=== PATIENT | female | born 1970 | race Caucasian/White ===

== ENCOUNTER 2022-10-24 09:12 | Outpatient (CLI) | payer OTHER, SELFPAY ==
[2022-10-24 18:30] LABS: Alanine Aminotransferase 115 U/L (6-35); Albumin Level 4.2 g/dL (3.5-5.1); Alkaline Phosphatase 49 U/L (38-126); Anion Gap 5 mmol/L (8-16); Aspartate Amino Transferase 81 U/L (14-36); Blood Urea Nitrogen 18 mg/dL (7-17); Calcium 8.8 mg/dL (8.4-10.2); Carbon Dioxide 30 mmol/L (22-30); Chloride 103 mmol/L (98-107); Cholesterol 199 mg/dL (0-200); Estimated Glomerular Filt Rate > 60; Glucose 106 mg/dL (65-110); HDL Direct 50 mg/dL; Potassium 4.1 mmol/L (3.4-5.0); Sodium 138 mmol/L (137-145); Triglycerides 89 mg/dL (<150)
[2022-10-24 18:42] LABS: LDL Cholesterol Direct 112 mg/dL
[2022-10-24 19:42] LABS: Hemoglobin A1C 5.9 % (<5.7)
[2022-10-24 19:45] LABS: Basophils Absolute Auto 0.1 K/mm3 (0.0-0.1); Basophils Percent Auto 1.1 % (0.2-1.2); Eosinophils Absolute Auto 0.2 K/mm3 (0-0.3); Eosinophils Percent Auto 2.3 % (0-4.4); Hematocrit 42.7 % (37.0-47.0); Hemoglobin 14.1 g/dL (12.0-15.0); Immature Granulocyte Absolute 0.01 K/mm3 (0.00-0.031); Immature Granulocyte Percent A 0.1 % (0-0.5); Lymphocytes Absolute Auto 2.27 K/mm3 (0.9-3.2); Lymphocytes Percent Auto 30.8 % (18.3-44.2); Mean Corpuscular Hemoglobin 30.9 pg (26-34); Mean Corpuscular Volume 93.6 fl (80-100); Mean Platelet Volume 9.8 fl (7.4-10.4); Monocytes Absolute Auto 0.6 K/mm3 (0.1-0.6); Monocytes Percent Auto 8.4 % (2.6-8.5); Neutrophils Absolute Auto 4.2 K/mm3 (1.3-6.7); Neutrophils Percent Auto 57.3 % (45.5-73.1); Platelet Count Result 350 k/mm3 (150-375); Red Blood Count 4.56 M/mm3 (4.2-5.4); Red Cell Distribution Width 12.1 % (11.5-14.5); White Blood Count 7.4 K/mm3 (4.5-10.0)
== END 2022-10-24 09:13 | disposition home or self-care (01) ==
LOC: ANHGOSHLAB 09:16
PROVIDERS: PCP Family Medicine; Visit Provider Nurse Practitioner
DX: E78.5 Hyperlipidemia, unspecified (principal); R73.03 Prediabetes
CPT/HCPCS: 36415; 80053; 80061; 83036; 85025

== ENCOUNTER 2022-11-02 08:47 | Outpatient (CLI) | payer OTHER, SELFPAY ==
[2022-11-02 20:43] LABS: Hepatitis B Surface Antigen Negative (Negative)
[2022-11-02 20:49] LABS: HAV RESULT Negative (Negative); Hepatitis B Core IgM Result Negative (Negative)
[2022-11-02 21:01] LABS: Hepatitis C Virus Antibody Negative (Negative)
== END 2022-11-02 08:48 | disposition home or self-care (01) ==
LOC: ANHGOSHLAB 08:49
PROVIDERS: PCP Family Medicine; Visit Provider Nurse Practitioner
DX: R74.8 Abnormal levels of other serum enzymes (principal)
CPT/HCPCS: 36415; 80074

== ENCOUNTER 2023-04-18 08:32 | Outpatient (CLI) | payer BC, SELFPAY ==
[2023-04-18 19:38] LABS: Basophils Absolute Auto 0.1 K/mm3 (0.0-0.1); Basophils Percent Auto 1.3 % (0.2-1.2); Eosinophils Absolute Auto 0.2 K/mm3 (0-0.3); Eosinophils Percent Auto 2.5 % (0-4.4); Hematocrit 42.8 % (37.0-47.0); Hemoglobin 13.9 g/dL (12.0-15.0); Immature Granulocyte Absolute 0.03 K/mm3 (0.00-0.031); Immature Granulocyte Percent A 0.3 % (0-0.5); Lymphocytes Absolute Auto 2.61 K/mm3 (0.9-3.2); Lymphocytes Percent Auto 30.2 % (18.3-44.2); Mean Corpuscular HGB Conc 32.5 g/dl (32-36); Mean Corpuscular Hemoglobin 30.3 pg (26-34); Mean Corpuscular Volume 93.2 fl (80-100); Mean Platelet Volume 9.5 fl (7.4-10.4); Monocytes Absolute Auto 0.6 K/mm3 (0.1-0.6); Monocytes Percent Auto 7.2 % (2.6-8.5); Neutrophils Absolute Auto 5.1 K/mm3 (1.3-6.7); Neutrophils Percent Auto 58.5 % (45.5-73.1); Platelet Count Result 353 k/mm3 (150-375); Red Blood Count 4.59 M/mm3 (4.2-5.4); Red Cell Distribution Width 12.6 % (11.5-14.5); White Blood Count 8.6 K/mm3 (4.5-10.0)
[2023-04-18 19:39] LABS: Alanine Aminotransferase 95 U/L (6-35); Alkaline Phosphatase 63 U/L (38-126); Anion Gap 3 mmol/L (8-16); Aspartate Amino Transferase 59 U/L (14-36); Bilirubin,Total 0.9 mg/dL (0.2-1.3); Blood Urea Nitrogen 13 mg/dL (7-17); Calcium 8.6 mg/dL (8.4-10.2); Carbon Dioxide 29 mmol/L (22-30); Chloride 103 mmol/L (98-107); Cholesterol 180 mg/dL (0-200); Estimated Glomerular Filt Rate > 60; Glucose 122 mg/dL (65-110); HDL Direct 51 mg/dL; Sodium 135 mmol/L (137-145); Triglycerides 86 mg/dL (<150)
[2023-04-18 19:48] LABS: LDL Cholesterol Direct 106 mg/dL
[2023-04-18 20:14] LABS: Hemoglobin A1C 5.8 % (<5.7)
[2023-04-18 20:21] LABS: Vitamin D 25 Hydroxy 69.1 ng/mL
== END 2023-04-18 08:33 | disposition home or self-care (01) ==
LOC: ANHGOSHLAB 08:33
PROVIDERS: PCP Family Medicine; Visit Provider Nurse Practitioner Family
DX: E78.5 Hyperlipidemia, unspecified (principal); R73.03 Prediabetes; E55.9 Vitamin D deficiency, unspecified
CPT/HCPCS: 36415; 80053; 80061; 82306; 83036; 85025

== ENCOUNTER 2023-08-28 11:15 | Outpatient (RCR) | payer BC, SELFPAY ==
--- NOTE | 2023-07-16 12:46 | OPREHPOC ---
Outpatient Therapy Plan of Care This is a Multidisciplinary Plan of Care that may contain components documented by all disciplines (PT, OT, and ST.) PT Problem 1 PT Problem #1 Knowledge Deficit PT Goal 1 Goal Pt to be IND with issued HEP Target Visit 8 PT Problem 2 PT Problem #2 Pain PT Goal 1 Goal Pt to reports low back/L leg pain no greater than 3/10 in the last week Target Visit 8 PT Goal 2 Goal Pt to report 75% improvement in overall symptoms Target Visit 8 PT Problem 3 PT Problem #3 Impaired Functional Mobil PT Goal 1 Goal Pt to be able to walk for 1 mile before needing to sit down Target Visit 8 PT Goal 2 Goal Pt to be able to stand for 2 hours prior to needing to sit Target Visit 8
--- NOTE | 2023-07-16 12:47 | PTOPEVAL1 ---
Assessment and note entered by Travis Tovar, PT, DPT Evaluation Information Assessment Status Evaluation Diagnosis low back pain Onset 1 month Subjective Information Pt reports she has fibromyalgia but states the pain she has been getting is more sciatic related pain. She gets a radiating shock pain down her leg when rolling over in bed, walking for long periods of time, and standing for a while. She also reports anterior thigh tightness and an achy pain in her lower back. 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 She states she can stand no longer than 10-15 mins at a time and walk no more than 1/2 a mile. Reported Pain Level Pain Score 4: Self Report Assessment PT Clinical Summary Nereyda presents to therapy today for her initial evaluation with a diagnosis of low back pain. Today she demonstrates a positive neural tension test, increased tenderness to palpation on her L piriformis and decreased piriformis ROM. She also demonstrates mild hip and core weakness contributing to postural deficits. Skilled therapy services are indicated to address the deficits noted above, to manage pain, and to return to [facility] . Plan of Care Interventions Electrical Stimulation,Gait Training,Hot Pack/Cold Pack,Manual Therapy,Neuro Re-education,Patient/ Caregiver Educati,Therapeutic Activities, Therapeutic Exercise PT Services Indicated Yes Treatment Frequency and 2x/wk for 8 visits Duration These treatments will address the objective and functional deficits as defined above. The patient will be advanced safely and appropriately in order for the patient to progress towards his/her prior level of function. Additional exercises will be introduced and as well as a comprehensive home exercise program upon discharge, if needed, ?to ensure carryover of functional gains achieved in the clinic. This treatment plan has been reviewed and agreement upon by the patient.
--- NOTE | 2023-08-07 13:19 | PTOPPROG ---
Assessment and note entered by Travis Tovar, PT, DPT Evaluation Information Assessment Status Progress Diagnosis low back pain Onset 1 month Subjective Information Pt states overall she has improved her body awareness during her daily tasks. She states she is still getting a burning sciatic pain but this is decreasing in frequency and intensity. She states she did some entertaining over the weeks and was really hurting from the extra cooking and cleaning. She states her muscle relaxer was increased and this has helped with her pain too. She states her standing tolerance has increased to at least 30 mins. Assessment PT Clinical Summary Nereyda presents to therapy today for her progress report following 6 visits of skilled therapy to treat her diagnosis of low back pain. Today she continues to have a positive neural tension test and increased tenderness to palpation on her L piriformis. She continues to have poor glute med contraction with resistance. Continuation of services are indicated to address the deficits noted above, to manage pain, and to return to [facility] . Plan of Care Interventions Electrical Stimulation,Gait Training,Hot Pack/Cold Pack,Manual Therapy,Neuro Re-education,Patient/ Caregiver Educati,Therapeutic Activities, Therapeutic Exercise PT Services Indicated Yes Treatment Frequency and 1x/wk for 4 visits Duration These treatments will address the objective and functional deficits as defined above. The patient will be advanced safely and appropriately in order for the patient to progress towards his/her prior level of function. Additional exercises will be introduced and as well as a comprehensive home exercise program upon discharge, if needed, ?to ensure carryover of functional gains achieved in the clinic. This treatment plan has been reviewed and agreement upon by the patient.
--- NOTE | 2023-09-04 12:55 | PCPTNOTE ---
Patient called & cancelled scheduled appointment this date due to being sick. She had to leave a voicemail. Called and LVM with follow up instructions to reschedule as this is her last appointment.
--- NOTE | 2023-09-26 08:20 | PTOPDC ---
Assessment and note entered by Travis Tovar, PT, DPT Evaluation Information Assessment Status Discharge - Pt Not Present Diagnosis low back pain Onset 1 month Subjective Information Pt did not show up to last scheduled appointment on 09/04/23. She was called at that time and told to reschedule if needed. We have not heard from her since. Assessment PT Clinical Summary Nereyda completed 9 visits of skilled therapy from to 09/04/23. She will be discharged at this time d/t inactivity.
== END 2023-09-26 09:31 | disposition home or self-care (01) ==
LOC: ANHGOSHPT 11:15
PROVIDERS: PCP Family Medicine; Visit Provider Nurse Practitioner Family
DX: M54.50 Low back pain, unspecified (principal)
CPT/HCPCS: 97110; 97140; 97161; 97530

== ENCOUNTER 2023-11-20 08:19 | Outpatient (CLI) | payer BC, SELFPAY ==
[2023-11-20 14:02] LABS: Basophils Absolute Auto 0.1 K/mm3 (0.0-0.1); Basophils Percent Auto 1.1 % (0.2-1.2); Eosinophils Absolute Auto 0.2 K/mm3 (0-0.3); Eosinophils Percent Auto 2.9 % (0-4.4); Hematocrit 43.7 % (37.0-47.0); Immature Granulocyte Absolute 0.02 K/mm3 (0.00-0.031); Immature Granulocyte Percent A 0.3 % (0-0.5); Lymphocytes Absolute Auto 2.32 K/mm3 (0.9-3.2); Lymphocytes Percent Auto 30.7 % (18.3-44.2); Mean Corpuscular Hemoglobin 30.6 pg (26-34); Mean Corpuscular Volume 95.6 fl (80-100); Mean Platelet Volume 9.8 fl (7.4-10.4); Monocytes Absolute Auto 0.6 K/mm3 (0.1-0.6); Monocytes Percent Auto 7.5 % (2.6-8.5); Neutrophils Absolute Auto 4.3 K/mm3 (1.3-6.7); Neutrophils Percent Auto 57.5 % (45.5-73.1); Platelet Count Result 312 k/mm3 (150-375); Red Blood Count 4.57 M/mm3 (4.2-5.4); Red Cell Distribution Width 12.6 % (11.5-14.5); White Blood Count 7.6 K/mm3 (4.5-10.0)
[2023-11-20 15:20] LABS: Alanine Aminotransferase 105 U/L (6-35); Alkaline Phosphatase 83 U/L (38-126); Anion Gap 6 mmol/L (8-16); Aspartate Amino Transferase 93 U/L (14-36); Bilirubin,Total 0.6 mg/dL (0.2-1.3); Blood Urea Nitrogen 21 mg/dL (7-17); Calcium 8.9 mg/dL (8.4-10.2); Carbon Dioxide 30 mmol/L (22-30); Chloride 103 mmol/L (98-107); Cholesterol 172 mg/dL (0-200); Estimated Glomerular Filt Rate > 60; Glucose 109 mg/dL (65-110); HDL Direct 56 mg/dL; Potassium 4.3 mmol/L (3.4-5.0); Sodium 139 mmol/L (137-145); Triglycerides 71 mg/dL (<150)
[2023-11-20 15:32] LABS: LDL Cholesterol Direct 91 mg/dL
[2023-11-20 20:26] LABS: Hemoglobin A1C 6.3 % (<5.7)
[2023-11-23 18:28] LABS: Vitamin D 1,25 (OH)2 Total 18 pg/mL (18-72); Vitamin D2 1,25 (OH)2 <8 pg/mL; Vitamin D3 1,25 (OH)2 18 pg/mL
== END 2023-11-20 08:20 | disposition home or self-care (01) ==
LOC: ANHGOSHLAB 08:21
PROVIDERS: PCP Nurse Practitioner Family; Visit Provider Nurse Practitioner Family
DX: Z00.00 Encounter for general adult medical examination without abnormal findings (principal); E11.9 Type 2 diabetes mellitus without complications; I10 Essential (primary) hypertension; E55.9 Vitamin D deficiency, unspecified
CPT/HCPCS: 36415; 80053; 80061; 82652; 83036; 84443; 85025

== ENCOUNTER 2024-07-27 08:32 | Outpatient (CLI) | payer OTHER, SELFPAY ==
[2024-07-27 13:39] LABS: Alanine Aminotransferase 121 U/L (6-35); Albumin Level 4.1 g/dL (3.5-5.1); Alkaline Phosphatase 64 U/L (38-126); Anion Gap 8 mmol/L (4-12); Aspartate Amino Transferase 79 U/L (14-36); Bilirubin,Total 1.1 mg/dL (0.2-1.3); Blood Urea Nitrogen 17 mg/dL (7-17); Calcium 8.9 mg/dL (8.4-10.2); Carbon Dioxide 27 mmol/L (22-30); Chloride 102 mmol/L (98-107); Cholesterol 167 mg/dL (0-200); Estimated Glomerular Filt Rate > 60; Glucose 106 mg/dL (65-110); HDL Direct 58 mg/dL; Potassium 3.9 mmol/L (3.4-5.0); Sodium 137 mmol/L (137-145); Triglycerides 69 mg/dL (<150)
[2024-07-27 13:51] LABS: LDL Cholesterol Direct 89 mg/dL
[2024-07-27 14:17] LABS: Hemoglobin A1C 5.9 % (<5.7)
[2024-07-27 14:24] LABS: Vitamin D 25 Hydroxy 71.8 ng/mL
[2024-07-27 14:39] LABS: Basophils Absolute Auto 0.1 K/mm3 (0.0-0.1); Basophils Percent Auto 0.8 % (0.2-1.2); Eosinophils Absolute Auto 0.2 K/mm3 (0-0.3); Eosinophils Percent Auto 2.4 % (0-4.4); Hematocrit 41.8 % (37.0-47.0); Immature Granulocyte Absolute 0.02 K/mm3 (0.00-0.031); Immature Granulocyte Percent A 0.3 % (0-0.5); Lymphocytes Absolute Auto 2.65 K/mm3 (0.9-3.2); Lymphocytes Percent Auto 33.9 % (18.3-44.2); Mean Corpuscular HGB Conc 33.5 g/dl (32-36); Mean Corpuscular Hemoglobin 31.5 pg (26-34); Mean Corpuscular Volume 93.9 fl (80-100); Mean Platelet Volume 9.8 fl (7.4-10.4); Monocytes Absolute Auto 0.6 K/mm3 (0.1-0.6); Monocytes Percent Auto 8.2 % (2.6-8.5); Neutrophils Absolute Auto 4.3 K/mm3 (1.3-6.7); Neutrophils Percent Auto 54.4 % (45.5-73.1); Platelet Count Result 320 k/mm3 (150-375); Red Blood Count 4.45 M/mm3 (4.2-5.4); Red Cell Distribution Width 13.1 % (11.5-14.5); White Blood Count 7.8 K/mm3 (4.5-10.0)
== END 2024-07-27 08:33 | disposition home or self-care (01) ==
LOC: ANHGOSHLAB 08:34
PROVIDERS: PCP Family Medicine; Visit Provider Family Medicine
DX: Z00.00 Encounter for general adult medical examination without abnormal findings (principal); M79.7 Fibromyalgia; F51.04 Psychophysiologic insomnia; E53.8 Deficiency of other specified B group vitamins; E55.9 Vitamin D deficiency, unspecified; I10 Essential (primary) hypertension; R73.9 Hyperglycemia, unspecified; E78.5 Hyperlipidemia, unspecified
CPT/HCPCS: 36415; 80053; 80061; 82306; 82607; 83036; 84443; 85025

== ENCOUNTER 2024-07-27 09:24 | Outpatient (CLI) | payer OTHER, SELFPAY ==
--- NOTE | ~2024-07-27 | XR_ITS ---
3 VIEWS LUMBAR SPINE Ordering provider: Omar Tan MD History: . M54.42 - Lumbago with sciatica, left side . Comparison: None. FINDINGS: VERTEBRAL BODIES: No visible fracture or subluxation. Degenerative changes of the spine. DISK SPACES: Narrowing of the disc L4-L5 and L5-S1. Facet joint disease at the level of L3-L4, L4-L5 and L5-S1. SOFT TISSUES: Normal. IMPRESSION: No acute osseous abnormality lumbar spine. Degenerative disc disease at the level of L4-L5 and L5-S1. Reviewed, dictated and finalized at location A.
== END 2024-07-27 09:25 | disposition home or self-care (01) ==
PROVIDERS: PCP Family Medicine; Visit Provider Family Medicine
DX: M54.42 Lumbago with sciatica, left side (principal)
CPT/HCPCS: 72110

== ENCOUNTER 2024-09-09 07:43 | Outpatient (CLI) | payer OTHER, SELFPAY ==
--- NOTE | ~2024-09-09 | US_ITS ---
Limited ABDOMINAL ULTRASOUND (Doppler ultrasound interrogation techniques used as needed for this exa m.) Ordering provider: Caitlin Coffey APRN History: . elevated LFT, fatty liver . Comparison: None. FINDINGS: PANCREAS: Normal echotexture and size. The tail is partially visualized. PORTAL VEIN: Hepatopedal flow demonstrated. LIVER: Normal size. Fat infiltration. No focal hepatic lesions or perihepatic fluid collections are i dentified. BILIARY DUCTS: No intra or extrahepatic biliary dilation. Common bile duct measures 3.1 mm in diamete r which is normal for patient's age. GALLBLADDER: Surgically removed. Abdominal aorta: Patent. IVC: Patent. FREE FLUID: None visualized within the upper abdomen. IMPRESSION: Fat infiltration of the liver. Otherwise, normal limited abdominal ultrasound. Reviewed, dictated and finalized at location A. [employer]
== END 2024-09-09 07:44 | disposition home or self-care (01) ==
LOC: ANHIMG 07:44
PROVIDERS: PCP Family Medicine; Visit Provider Nurse Practitioner
DX: R74.8 Abnormal levels of other serum enzymes (principal); K76.0 Fatty (change of) liver, not elsewhere classified
CPT/HCPCS: 76705

== ENCOUNTER 2024-09-29 09:30 | Outpatient (CLI) | payer OTHER, SELFPAY ==
[2024-10-19 17:54] VITALS: BMI 37.1
--- NOTE | 2024-10-19 17:54 | WPDHOMESLEEP ---
Sleep Study - Home Unattended Date of Study: 09/29/24 Ordering Provider: James Tan MD Interpreting Provider: Alaina Puri, DO Home Sleep Study Type: Watch PAT Height: 1.68 m Weight: 104.326 kg Body Mass Index: 37.1 Neck Circumference (inches): 16.25 [place]: 10 Reason for Sleep Study Daytime hypersomnia Sleep History The patient is a 54-year-old female that had a sleep study ordered for evaluation of sleep apnea. The patient admits to snoring loudly, excessive daytime sleepiness is well as trouble falling and staying asleep. The patient admits to stopping breathing while asleep. She had mitts to choking or gasping at night. She does have trouble breathing on her back. She denies morning headaches. She does have a dry or sore mouth/ throat in the morning. She denies nocturnal heartburn. She denies nocturia. She denies having difficulty returning to sleep if she wakes up throughout the night. She denies the use of hypnotics or sedatives. She denies feeling anxious about sleep. She does feel tired or sleepy during the day. She does feel tired in the morning. She does have the urge to fall asleep during the day. She does feel drowsy while driving. She denies sleep paralysis, cataplexy and hypnagogic / hypnopompic hallucinations. She denies clenching or grinding her teeth. She denies kicking her drinking her leg excessively. She denies having a restless feeling in her legs. She goes to bed at 10:30 p.m. on work days and at 11:00 p.m. on her days off. It takes her 30 minutes to fall asleep. She gets 6-1/2 hours of sleep on work days and 8 hours of sleep on her days off. Her sleep is somewhat restorative on her days off. She denies taking any plan naps. She denies dream enactment behavior. She denies sleep walking. She consumes 1-2 cups of caffeinated beverage per day. She consumes 1 glass of an alcoholic beverage 1-2 nights per week. She denies tobacco use. She denies exercising on a regular basis.[facility] Past Medical History Medical History Hepatic steatosis (~2016) Vitamin D deficiency Chronic low back pain with left-sided sciatica Chronic insomnia Prediabetes Fibromyalgia Surgical History Surgical History History of (~2009) History of cholecystectomy (~2011) Family History Family History Father Hypertension Family history of diabetes mellitus in first degree relative Grandparent Family history of arthritis Malignant neoplasm of prostate Family history of malignant neoplasm of bone Family history of malignant neoplasm of breast Mother Family history of malignant neoplasm Patient's mother is Other Diabetes mellitus Family history of elevated blood lipids Social History Social History Smoking status: Never smoker Alcohol intake: current Substance use: never Substance use type: does not use Lack of Transportation: No Lack of Food: Never True Current Housing: I Have Housing Concerned About Future Housing: No Difficulty Paying Gas/Electric Bills: No Difficulty Paying for Meds: No Currently Unemployed: No Education: Master's Degree or Higher Difficulty w/ Childcare or Family Care: No Living arrangements: with family Occupation/Education: occupation Gender identity (if verbalized by the patient): Female Agree to blood products: Yes Medications Home Medications ?Medication ?Instructions ?Recorded ?Confirmed ?Type acetaminophen 500 mg tablet 500 mg PO Q6H PRN 11/03/19 08/27/24 History (Tylenol Extra Strength) melatonin 10 mg capsule 10 mg PO DAILY PRN 11/03/19 08/27/24 History cholecalciferol (vitamin D3) 125 125 mcg PO DAILY 07/09/23 08/27/24 History mcg (5,000 unit) tablet duloxetine 30 mg capsule,delayed 30 mg PO BID #180 caps 07/23/24 08/27/24 Rx release (Cymbalta) gabapentin 600 mg tablet 600 mg PO TID #270 tabs 08/24/24 08/27/24 Rx cyclobenzaprine 10 mg tablet See Rx Instructions .Route 09/21/24 Rx .COMPLEX #90 tabs amitriptyline 25 mg tablet 25 mg PO QHS #90 tabs 10/19/24 Rx Sleep Procedure The sleep study was completed using [employer] CitizenPAT a technically adequate device with seven channels: peripheral arterial tone, actigraphy, body position, snore, respiratory movement, pulse oximetry, sleep staging, and heart rate. Prior to using the device, the patient received verbal and written instructions for its application and was provided with the help desk phone number for additional telephonic instruction with 24-hour availability of qualified personnel to answer questions. The study was scored using CMS guidelines. Sleep Architecture The total recording time is 6 hrs, 54 min. The total sleep time is 6 hrs, 15 min. Sleep latency is 19 minutes. REM latency is 70 minutes. The patient had 9 episodes of waking. Sleep architecture shows 22.6% deep sleep, 51.1% light sleep, and (as % Total Sleep Time) showed NREM (Light 51.1%; Deep 22.6%), and a 26.2% stage REM. The patient spent 63.7% of total sleep time in the supine position. Sleep efficiency was 90.58. Respiratory Analysis The overall AHI (pAHI 4%:) is 20.7. The central AHI is 0.6. The AHI was 12.9 in NREM and 42.8 in REM sleep. The AHI was 24.0 in Supine and 15.0 in Non-supine sleep. Percent of Manish Solis respirations is 0.0. Oximetry Data The oxygen desaturation index (ESTHER 4%:) is 19.8. The mean saturation is 91%, and the lowest saturation is 81%. Time spent with saturation < 88% is 13.0 minutes. Snoring Profile Snoring average intensity is 46 dB. The patient snored above 45 decibels for 147.9 minutes, 39.4% of sleep time. Cardiac Profile The average pulse rate is 91 beats per minutes. The lowest pulse rate is 71 bpm. The highest pulse rate reported is 112 bpm. Atrial fibrillation was not detected. Premature beats occur <0.1 per minute. Assessment and Plan Assessment and Plan (1) KENRICK (obstructive sleep apnea): Code(s): G47.33 - Obstructive sleep apnea (adult) (pediatric) Status: Acute Assessment and Plan: The patient had an overall AHI of 20.7 with desaturation down to 81%. This is consistent with moderate sleep apnea. I recommend that the patient be prescribed Resmed AutoPAP 5-15 cm H2O, CPAP mask/filters/tubing and heated humidity. This should be used with all episodes of sleep.? Compliance should be reviewed within 31-90 days of starting therapy for usage greater than 4 hours per night greater than 70% of the nights. The patient should be asked about symptoms such as?excessive daytime sleepiness, quality of sleep, decreased nocturia, increased?mental functioning such as memory, mood, and concentration. Data The data obtained during this sleep study is adequate for interpretation. Certification This sleep study has been reviewed by a board certified sleep medicine physician.
== END 2024-09-30 15:52 | disposition home or self-care (01) ==
LOC: ANHCSM 09:33
PROVIDERS: PCP Family Medicine; Visit Provider Family Medicine
DX: G47.33 Obstructive sleep apnea (adult) (pediatric) (principal); G47.10 Hypersomnia, unspecified; R40.0 Somnolence
CPT/HCPCS: 95800

== ENCOUNTER 2024-12-26 08:15 | Day surgery (SDC) | payer OTHER, SELFPAY ==
[2024-12-26] VITALS (10 sets, daily range): BP systolic 94–135; BP diastolic 53–80; PULSE 100–130; RESP 12–22; TEMP 36.8–37.3; O2SAT 91–100
--- NOTE | 2024-12-26 08:35 | PC.NURSE ---
Patient has had her gallbladder removed in 2009. Patient states she is having pain along her lower abdomen
[2024-12-26 08:41] LABS: Basophils Absolute Auto 0.1 K/mm3 (0.0-0.1); Basophils Percent Auto 0.3 % (0.2-1.2); Hematocrit 42.4 % (37.0-47.0); Hemoglobin 14.6 g/dL (12.0-15.0); Immature Granulocyte Absolute 0.18 K/mm3 (0.00-0.031); Immature Granulocyte Percent A 0.7 % (0-0.5); Lymphocytes Absolute Auto 2.19 K/mm3 (0.9-3.2); Lymphocytes Percent Auto 8.1 % (18.3-44.2); Mean Corpuscular HGB Conc 34.4 g/dl (32-36); Mean Corpuscular Hemoglobin 30.8 pg (26-34); Mean Corpuscular Volume 89.5 fl (80-100); Mean Platelet Volume 9.6 fl (7.4-10.4); Monocytes Absolute Auto 1.8 K/mm3 (0.1-0.6); Monocytes Percent Auto 6.8 % (2.6-8.5); Neutrophils Absolute Auto 22.7 K/mm3 (1.3-6.7); Neutrophils Percent Auto 84.1 % (45.5-73.1); Platelet Count Result 365 k/mm3 (150-375); Red Blood Count 4.74 M/mm3 (4.2-5.4); Red Cell Distribution Width 12.6 % (11.5-14.5); White Blood Count 26.9 K/mm3 (4.5-10.0)
[2024-12-26 08:50] LABS: Alanine Aminotransferase 94 U/L (6-35); Albumin Level 4.4 g/dL (3.5-5.1); Alkaline Phosphatase 58 U/L (38-126); Anion Gap 14 mmol/L (4-12); Aspartate Amino Transferase 49 U/L (14-36); Bilirubin,Total 1.8 mg/dL (0.2-1.3); Blood Urea Nitrogen 16 mg/dL (7-17); Calcium 9.2 mg/dL (8.4-10.2); Carbon Dioxide 22 mmol/L (22-30); Chloride 97 mmol/L (98-107); Estimated CRCL calculation 118 ml/min; Estimated Glomerular Filt Rate > 60; Glucose 160 mg/dL (65-110); Lipase 29 U/L (23-300); Potassium 4.1 mmol/L (3.4-5.0); Sodium 133 mmol/L (137-145)
--- NOTE | 2024-12-26 10:02 | PC.NURSE ---
Patient ambulated to the restroom with steady gate
[2024-12-26] MEDS: SODIUM CHLORIDE 0.9% IV 1,000 ML 999 ML IV CONT (10:07)
[2024-12-26] MEDS: ONDANSETRON INJ 4 MG/2 ML VIAL IV PUSH (10:07)
[2024-12-26] MEDS: MORPHINE SULFATE (*CRX) 4 MG/ML INJ IV PUSH ×2 (10:07→11:59)
[2024-12-26 10:22] LABS: Add Urine Microscopic? YES; Appearance Urine Clear (Clear); Bacteria Urine None Seen /hpf; Bilirubin Urine Negative (Negative); Blood Urine Trace (Negative); Color Urine Yellow (Yellow); Glucose Urine UA Negative (Negative); Ketones Urine Negative (Negative); Leukocyte Esterase Ur Negative LEU/UL (Negative); Nitrate Urine Negative (Negative); Non Pathogenic Casts 0-2; Protein Urine Negative (Negative); RBC Urine 0-2 /hpf (0-2); Specific Grav Ur > 1.045 (1.001-1.035); Squamous Epithelial Cell Urine None Seen /hpf (Few); Urobilinogen Urine 0.2 mg/dL (<2.0); WBC Urine 0-5 /hpf (0-3)
[2024-12-26] MEDS: PIPERACILLN/TAZ 3.375GM/NS50ML 3.375 GM/50 ML BAG IVPB (10:40)
--- NOTE | 2024-12-26 11:07 | ED.ABDPAIN ---
HPI - Abdominal Pain General Chief Complaint: Abdominal Pain Stated Complaint: abd pain Time Seen by Provider: 12/26/24 08:27 History of Present Illness HPI narrative: Patient is a 54-year-old female who presents ER with bilateral lower quadrant pain. Worsening since last night. Most tender in the right lower quadrant. No urinary frequency urgency or dysuria. No constipation or diarrhea. Has not found any alleviating factors. Related Data Home Medications ?Medication ?Instructions ?Recorded ?Confirmed ?Last Taken ?Type acetaminophen 500 mg tablet 500 mg PO Q6H PRN 11/03/19 08/27/24 Unknown History (Tylenol Extra Strength) melatonin 10 mg capsule 10 mg PO DAILY PRN 11/03/19 08/27/24 Unknown History cholecalciferol (vitamin D3) 125 125 mcg PO DAILY 07/09/23 08/27/24 Unknown History mcg (5,000 unit) tablet Allergies Allergy/AdvReac Type Severity Reaction Status Date / Time No Known Allergies Allergy Verified 12/26/24 08:19 Review of Systems Review of Systems: All systems reviewed & are unremarkable except as noted in HPI and below Constitutional: Constitutional: Reports no additional constitutional complaints Cardiovascular: Cardiovascular: Reports no additional cardiovascular complaints Respiratory: Respiratory: Reports no additional respiratory complaints Gastrointestinal: Gastrointestinal: Reports no additional gastrointestinal complaints Genitourinary: Genitourinary: Reports no additional female genitourinary complaints PMFSH Past Medical History Medical History Hepatic steatosis (~2016) Vitamin D deficiency Chronic low back pain with left-sided sciatica Chronic insomnia Prediabetes Fibromyalgia Surgical History Surgical History History of (~2009) History of cholecystectomy (~2011) Family History Family History Father Hypertension Family history of diabetes mellitus in first degree relative Grandparent Family history of arthritis Malignant neoplasm of prostate Family history of malignant neoplasm of bone Family history of malignant neoplasm of breast Mother Family history of malignant neoplasm Patient's mother is Other Diabetes mellitus Family history of elevated blood lipids Social History Social History Smoking status: Never smoker Alcohol intake: current Substance use: never Substance use type: does not use Lack of Transportation: No Lack of Food: Never True Current Housing: I Have Housing Concerned About Future Housing: No Difficulty Paying Gas/Electric Bills: No Difficulty Paying for Meds: No Currently Unemployed: No Education: Master's Degree or Higher Difficulty w/ Childcare or Family Care: No Living arrangements: with family Occupation/Education: occupation Gender identity (if verbalized by the patient): Female Agree to blood products: Yes Exam Narrative: GENERAL: Well-appearing, well-nourished, and in no acute distress. HEAD: Normocephalic, atraumatic. ENT: Mucous membranes moist. CHEST: Clear to auscultation. No respiratory distress. HEART: Regular rate and rhythm. Normal peripheral pulses. ABDOMEN: Soft, tender to deep palpation with guarding in bilateral lower quadrants, nondistended, normal active bowel sounds. EXTREMITIES: Normal range of motion. No edema. SKIN: Warm, dry, no rash. NEURO: Alert and oriented x3. PSYCH: Normal mood and affect. Course Course Emergency Course: 1107: Discussed with Dr. Powell, will take to the OR. Patient aware of dx and tx plan. Has received IV zosyn. Had a small amount of gatorade this morning, last solid food 6p yesterday. Vital Signs Vital signs: Vital Signs Temperature 98.3 F 12/26/24 08:16 Pulse Rate 130 H 12/26/24 08:16 Respiratory Rate 18 12/26/24 08:16 Blood Pressure 134/61 12/26/24 08:16 Pulse Oximetry 99 12/26/24 08:16 Oxygen Delivery Room Air 12/26/24 08:16 Temperature 99.2 F 12/26/24 14:40 Pulse Rate 100 12/26/24 15:40 Respiratory Rate 14 12/26/24 15:40 Blood Pressure 94/70 L 12/26/24 15:40 Pulse Oximetry 91 12/26/24 15:40 Oxygen Delivery Room Air 12/26/24 15:40 Oxygen Flow Rate 1 12/26/24 15:15 MDM - Abdominal Pain Lab Data 12/26/24 08:34 12/26/24 08:34 Labs: Lab Results 12/26/24 12/26/24 Range/Units 08:34 10:09 WBC 26.9 H (4.5-10.0) K/mm3 RBC 4.74 (4.2-5.4) M/mm3 Hgb 14.6 (12.0-15.0) g/dL Hct 42.4 (37.0-47.0) % MCV 89.5 (80-100) fl MCH 30.8 (26-34) pg MCHC 34.4 (32-36) g/dl RDW 12.6 (11.5-14.5) % Plt Count 365 (150-375) k/mm3 MPV 9.6 (7.4-10.4) fl Immature Gran % (Auto) 0.7 H (0-0.5) % Neut % (Auto) 84.1 H (45.5-73.1) % Lymph % (Auto) 8.1 L (18.3-44.2) % [place] % (Auto) 6.8 (2.6-8.5) % Eos % (Auto) 0.0 (0-4.4) % Baso % (Auto) 0.3 (0.2-1.2) % Lymph # (Auto) 2.19 (0.9-3.2) K/mm3 [place] # (Auto) 1.8 H (0.1-0.6) K/mm3 Eos # (Auto) 0.0 (0-0.3) K/mm3 Baso # (Auto) 0.1 (0.0-0.1) K/mm3 Abs Immat Gran (auto) 0.18 H (0.00-0.031) K/mm3 Absolute Neuts (auto) 22.7 H (1.3-6.7) K/mm3 Absolute Nucleated RBC 0.000 (0.0-0.012) K/mm3 Nucleated RBC % 0.0 (0.0-0.2) % Sodium 133 L (137-145) mmol/L Potassium 4.1 (3.4-5.0) mmol/L Chloride 97 L (98-107) mmol/L Carbon Dioxide 22 (22-30) mmol/L Anion Gap 14 H (4-12) mmol/L BUN 16 (7-17) mg/dL Creatinine 0.60 L (0.7-1.0) mg/dL Estim Creat Clear Calc 118 ml/min Estimated GFR > 60 (59 - ) Glucose 160 H (65-110) mg/dL Calcium 9.2 (8.4-10.2) mg/dL Total Bilirubin 1.8 H (0.2-1.3) mg/dL AST 49 H (14-36) U/L ALT 94 H (6-35) U/L Alkaline Phosphatase 58 (38-126) U/L Total Protein 8.0 (6.3-8.2) g/dL Albumin 4.4 (3.5-5.1) g/dL Lipase 29 (23-300) U/L Urine Color Yellow (Yellow) Urine Appearance Clear (Clear) Urine pH 7.0 (5.0-9.0) Ur Specific [place] > 1.045 H (1.001-1.035) Urine Protein Negative (Negative) mg/dL Urine Glucose (UA) Negative (Negative) mg/dL Urine Ketones Negative (Negative) mg/dL Ur Blood (Man) Trace (Negative) Urine Nitrate Negative (Negative) Urine Bilirubin Negative (Negative) Urine Urobilinogen 0.2 (<2.0) mg/dL Leukocyte Esterase Rfl Negative (Negative) ELLEN/UL Urine RBC 0-2 (0-2) /hpf Urine WBC 0-5 (0-3) /hpf Ur Squamous Epith Cells None seen (Few) /hpf Urine Bacteria None seen /hpf Urine Casts 0-2 Imaging Data Radiologist's impression: ITS Impressions Abdomen/Pelvis CT 12/26/24 09:52 IMPRESSION: 1. Acute appendicitis. Dr. Calabrese discussed these findings with Dr. Lima at 9:57 AM. 2. Small sliding-type hiatal hernia. Discharge Plan Discharge Clinical Impression: Acute appendicitis Patient Disposition: Still a Patient Condition: Stable
--- NOTE | 2024-12-26 11:24 | WPDANESEPP ---
Anes - Eval Pre Procedure Procedure: Laparoscopic Appendectomy Date/Time: 12/26/24 11:24 Surgeon: Andre Preop Diagnosis: acute appendicitis Pre Op Diagnosis: abd pain Patient Data Age: 54 Gender: F Height: 1.7 m Weight: 107.6 kg Last Vital Signs Temp 98.3 F 12/26/24 08:16 Pulse 112 H 12/26/24 10:12 Resp 20 12/26/24 10:12 BP 135/73 12/26/24 10:12 Pulse Ox 96 12/26/24 10:12 O2 Del Method Room Air 12/26/24 08:16 Allergies Allergy/AdvReac Type Severity Reaction Status Date / Time No Known Allergies Allergy Verified 12/26/24 08:19 Home Medications ?Medication ?Instructions ?Recorded ?Confirmed ?Type acetaminophen 500 mg tablet 500 mg PO Q6H PRN 11/03/19 08/27/24 History (Tylenol Extra Strength) melatonin 10 mg capsule 10 mg PO DAILY PRN 11/03/19 08/27/24 History cholecalciferol (vitamin D3) 125 125 mcg PO DAILY 07/09/23 08/27/24 History mcg (5,000 unit) tablet duloxetine 30 mg capsule,delayed 30 mg PO BID #180 caps 07/23/24 08/27/24 Rx release (Cymbalta) gabapentin 600 mg tablet 600 mg PO TID #270 tabs 08/24/24 08/27/24 Rx amitriptyline 25 mg tablet 25 mg PO QHS #90 tabs 10/19/24 Rx APAP #1 ea 10/20/24 Rx cyclobenzaprine 10 mg tablet See Rx Instructions .Route 11/24/24 Rx .COMPLEX #90 tabs Laboratory Tests 12/26/24 12/26/24 08:34 10:09 WBC 26.9 H K/mm3 (4.5-10.0) RBC 4.74 M/mm3 (4.2-5.4) Hgb 14.6 g/dL (12.0-15.0) Hct 42.4 % (37.0-47.0) MCV 89.5 fl (80-100) MCH 30.8 pg (26-34) MCHC 34.4 g/dl (32-36) RDW 12.6 % (11.5-14.5) Plt Count 365 k/mm3 (150-375) MPV 9.6 fl (7.4-10.4) Immature Gran % (Auto) 0.7 H % (0-0.5) Neut % (Auto) 84.1 H % (45.5-73.1) Lymph % (Auto) 8.1 L % (18.3-44.2) Saline % (Auto) 6.8 % (2.6-8.5) Eos % (Auto) 0.0 % (0-4.4) Baso % (Auto) 0.3 % (0.2-1.2) Lymph # (Auto) 2.19 K/mm3 (0.9-3.2) Saline # (Auto) 1.8 H K/mm3 (0.1-0.6) Eos # (Auto) 0.0 K/mm3 (0-0.3) Baso # (Auto) 0.1 K/mm3 (0.0-0.1) Abs Immat Gran (auto) 0.18 H K/mm3 (0.00-0.031) Absolute Neuts (auto) 22.7 H K/mm3 (1.3-6.7) Absolute Nucleated RBC 0.000 K/mm3 (0.0-0.012) Nucleated RBC % 0.0 % (0.0-0.2) Sodium 133 L mmol/L (137-145) Potassium 4.1 mmol/L (3.4-5.0) Chloride 97 L mmol/L (98-107) Carbon Dioxide 22 mmol/L (22-30) Anion Gap 14 H mmol/L (4-12) BUN 16 mg/dL (7-17) Creatinine 0.60 L mg/dL (0.7-1.0) Estim Creat Clear Calc 118 ml/min Estimated GFR > 60 (59 - ) Glucose 160 H mg/dL (65-110) Calcium 9.2 mg/dL (8.4-10.2) Total Bilirubin 1.8 H mg/dL (0.2-1.3) AST 49 H U/L (14-36) ALT 94 H U/L (6-35) Alkaline Phosphatase 58 U/L (38-126) Total Protein 8.0 g/dL (6.3-8.2) Albumin 4.4 g/dL (3.5-5.1) Lipase 29 U/L (23-300) Urine Color Yellow (Yellow) Urine Appearance Clear (Clear) Urine pH 7.0 (5.0-9.0) Ur Specific [place] > 1.045 H (1.001-1.035) Urine Protein Negative mg/dL (Negative) Urine Glucose (UA) Negative mg/dL (Negative) Urine Ketones Negative mg/dL (Negative) Ur Blood (Man) Trace (Negative) Urine Nitrate Negative (Negative) Urine Bilirubin Negative (Negative) Urine Urobilinogen 0.2 mg/dL (<2.0) Leukocyte Esterase Rfl Negative ELLEN/UL (Negative) Urine RBC 0-2 /hpf (0-2) Urine WBC 0-5 /hpf (0-3) Ur Squamous Epith Cells None seen /hpf (Few) Urine Bacteria None seen /hpf Urine Casts 0-2 Patient hx anesthesia problems: none Family hx anesthesia problems: none Results Review: All pre-operative results and documents have been reviewed as part of the pre-operative evaluation. [facility] Past Medical History Medical History Hepatic steatosis (~2016) Vitamin D deficiency Chronic low back pain with left-sided sciatica Chronic insomnia Prediabetes Fibromyalgia Surgical History Surgical History History of (~2009) History of cholecystectomy (~2011) Family History Family History Father Hypertension Family history of diabetes mellitus in first degree relative Grandparent Family history of arthritis Malignant neoplasm of prostate Family history of malignant neoplasm of bone Family history of malignant neoplasm of breast Mother Family history of malignant neoplasm Patient's mother is Other Diabetes mellitus Family history of elevated blood lipids Social History Social History Smoking status: Never smoker Alcohol intake: current Substance use: never Substance use type: does not use Lack of Transportation: No Lack of Food: Never True Current Housing: I Have Housing Concerned About Future Housing: No Difficulty Paying Gas/Electric Bills: No Difficulty Paying for Meds: No Currently Unemployed: No Education: Master's Degree or Higher Difficulty w/ Childcare or Family Care: No Living arrangements: with family Occupation/Education: occupation Gender identity (if verbalized by the patient): Female Agree to blood products: Yes Exam Day of Procedure 12/26/24 11:24
--- NOTE | 2024-12-26 11:54 | PC.NURSE ---
Spoke with Bea from OR for report. States she will call when they are ready for patient to come to pre-op
--- NOTE | 2024-12-26 12:07 | PM.IMHP ---
H&P: HPI History of Present Illness Date/Time: 12/26/24 12:07 Chief Complaint: Abdominal pain Narrative: Patient is a 54-year-old woman who reports off and on mid abdominal and lower abdominal pain for about a month. Then yesterday afternoon, after a heavy meal, she began having mid lower abdominal pain. The pain was slightly right of midline and was persistent. It got worse over time. She had no nausea or vomiting. She had no diarrhea. Patient went to the emergency room this morning. She was noted to have right lower quadrant tenderness. Her white blood cell count was quite elevated at 26,[address] scan showed acute appendicitis. There was no sign of abscess or perforation. Patient was seen in the emergency room and is taken now to surgery for laparoscopic appendectomy. Review of Systems Review of Systems: All systems reviewed & are unremarkable except as noted in HPI and below (HPI) [facility] Past Medical History Medical History Hepatic steatosis (~2016) Vitamin D deficiency Chronic low back pain with left-sided sciatica Chronic insomnia Prediabetes Fibromyalgia Surgical History Surgical History History of (~2009) History of cholecystectomy (~2011) Family History Family History Father Hypertension Family history of diabetes mellitus in first degree relative Grandparent Family history of arthritis Malignant neoplasm of prostate Family history of malignant neoplasm of bone Family history of malignant neoplasm of breast Mother Family history of malignant neoplasm Patient's mother is Other Diabetes mellitus Family history of elevated blood lipids Social History Social History Smoking status: Never smoker Alcohol intake: current Substance use: never Substance use type: does not use Lack of Transportation: No Lack of Food: Never True Current Housing: I Have Housing Concerned About Future Housing: No Difficulty Paying Gas/Electric Bills: No Difficulty Paying for Meds: No Currently Unemployed: No Education: Master's Degree or Higher Difficulty w/ Childcare or Family Care: No Living arrangements: with family Occupation/Education: occupation Gender identity (if verbalized by the patient): Female Agree to blood products: Yes Meds Home Medications and Allergies Home Medications ?Medication ?Instructions ?Recorded ?Confirmed ?Type acetaminophen 500 mg tablet 500 mg PO Q6H PRN 11/03/19 08/27/24 History (Tylenol Extra Strength) melatonin 10 mg capsule 10 mg PO DAILY PRN 11/03/19 08/27/24 History cholecalciferol (vitamin D3) 125 125 mcg PO DAILY 07/09/23 08/27/24 History mcg (5,000 unit) tablet duloxetine 30 mg capsule,delayed 30 mg PO BID #180 caps 07/23/24 08/27/24 Rx release (Cymbalta) gabapentin 600 mg tablet 600 mg PO TID #270 tabs 08/24/24 08/27/24 Rx amitriptyline 25 mg tablet 25 mg PO QHS #90 tabs 10/19/24 Rx APAP #1 ea 10/20/24 Rx cyclobenzaprine 10 mg tablet See Rx Instructions .Route 11/24/24 Rx .COMPLEX #90 tabs Allergies Allergy/AdvReac Type Severity Reaction Status Date / Time No Known Allergies Allergy Verified 12/26/24 08:19 Vital Signs Vital Signs - 24 hr 12/26/24 08:16 12/26/24 10:12 Temperature 36.8 C Pulse Rate 130 H 112 H Respiratory Rate 18 20 Blood Pressure 134/61 135/73 Pulse Oximetry 99 96 Oxygen Delivery Room Air Exam Const: General: no acute distress, alert, awake, ill appearing, uncomfortable and overweight Orientation/consciousness: patient oriented x3 and No confusion HENMT: Head: normocephalic and atraumatic Mouth: Yes Normal oral and palatal mucosa present Eyes: Conjunctivae: conjunctivae normal Pupils: Equal, round and reactive pupils present EOM: EOMs intact bilaterally Neck: Neck: normal visual inspection, no lymphadenopathy and nontender Resp: Effort & Inspection: normal respiratory effort Auscultation: clear to auscultation bilaterally Cardio: Rate: regular rate Rhythm: regular rhythm Heart sounds: no gallops, no murmurs and no rubs GI: Inspection: non-distended and obesity GI Palp: Yes Soft to palpation, Yes Tenderness to palpation present (GI) (Right suprapubic area very tender with guarding), No Hepatomegaly present, No Splenomegaly present, No Hernia present and No Palpable mass present Auscultation: Hypoactive bowel sounds present Skin: Lesions: no lesions Rashes: no rashes Neuro: General: no focal motor deficits and CN's II-XI intact bilaterally Cranial nerves: Yes Equal, round and reactive pupils present, Yes Bilaterally intact EOM present, Yes facial symmetry and Yes Midline tongue present Speech: normal speech Motor exam (neuro): 5/5 motor strength present throughout and Motor abnormalities not present Extrem: General: no clubbing, cyanosis or edema and edema Psych: Affect: normal affect Thought process: Normal thought process present Insight: Good insight present (Psych) H&P: Results Labs Labs: Short CBC 12/26/24 Range/Units 08:34 WBC 26.9 H (4.5-10.0) K/mm3 Hgb 14.6 (12.0-15.0) g/dL Hct 42.4 (37.0-47.0) % Plt Count 365 (150-375) k/mm3 BMP 12/26/24 08:34 Sodium 133 L Potassium 4.1 Chloride 97 L Carbon Dioxide 22 BUN 16 Creatinine 0.60 L Glucose 160 H Calcium 9.2 Liver Function 12/26/24 Range/Units 08:34 Total Bilirubin 1.8 H (0.2-1.3) mg/dL AST 49 H (14-36) U/L ALT 94 H (6-35) U/L Alkaline Phosphatase 58 (38-126) U/L Albumin 4.4 (3.5-5.1) g/dL Urine 12/26/24 Range/Units 10:09 Urine Color Yellow (Yellow) Urine Appearance Clear (Clear) Urine pH 7.0 (5.0-9.0) Ur Specific [place] > 1.045 H (1.001-1.035) Urine Protein Negative (Negative) mg/dL Urine Glucose (UA) Negative (Negative) mg/dL Imaging CT scan - abdomen: My impression: Acute appendicitis Radiologist's impression: Same Assessment and Plan Assessment and plan (1) Acute appendicitis with localized peritonitis without perforation: Qualifiers: Appendicitis gangrene presence: without gangrene Appendicitis abscess presence: without abscess Qualified Code(s): K35.30 - Acute appendicitis with localized peritonitis, without perforation or gangrene Code(s): K35.30 - Acute appendicitis with localized peritonitis, without perforation or gangrene Status: Acute Assessment and Plan: History, labs, exam, and imaging all strongly suggest acute appendicitis. I discussed this with the patient. Her spouse was present at the time. I discussed nonsurgical treatment as well as laparoscopic appendectomy. She prefers appendectomy. I discussed the procedure, risks, alternatives, and usual recovery. I discussed that she may still have a ruptured appendix particularly with her high white count. I also discussed that she may need to stay in the hospital for IV antibiotics and that she may need to have a drain placed in surgery that she would continue to have in place after discharge. All questions were answered. She understands and agrees to go ahead. (2) Obesity (BMI 30-39.9): Code(s): E66.9 - Obesity, unspecified Status: Chronic (3) NAFLD (nonalcoholic fatty liver disease): Code(s): K76.0 - Fatty (change of) liver, not elsewhere classified Status: Chronic (4) Chronic insomnia: Code(s): F51.04 - Psychophysiologic insomnia Status: Chronic (5) Fibromyalgia: Code(s): M79.7 - Fibromyalgia Status: Chronic
--- NOTE | 2024-12-26 12:16 | WPDANESEPPF ---
Anes - Initial Pre Proc Eval Procedure: Operation Date: 12/26/24 13:00 Proposed Procedures p Laparoscopic Appendectomy - Phill Powell MD Date/Time: 12/26/24 12:16 Surgeon: Phill Powell MD Pre Op Diagnosis: abd pain Patient Data Age: 54 Gender: F Height: 1.7 m Weight: 107.6 kg Last Vital Signs Temp 98.3 F 12/26/24 08:16 Pulse 112 H 12/26/24 10:12 Resp 20 12/26/24 10:12 BP 135/73 12/26/24 10:12 Pulse Ox 96 12/26/24 10:12 O2 Del Method Room Air 12/26/24 08:16 Allergies Allergy/AdvReac Type Severity Reaction Status Date / Time No Known Allergies Allergy Verified 12/26/24 08:19 Home Medications ?Medication ?Instructions ?Recorded ?Confirmed ?Type acetaminophen 500 mg tablet 500 mg PO Q6H PRN 11/03/19 08/27/24 History (Tylenol Extra Strength) melatonin 10 mg capsule 10 mg PO DAILY PRN 11/03/19 08/27/24 History cholecalciferol (vitamin D3) 125 125 mcg PO DAILY 07/09/23 08/27/24 History mcg (5,000 unit) tablet duloxetine 30 mg capsule,delayed 30 mg PO BID #180 caps 07/23/24 08/27/24 Rx release (Cymbalta) gabapentin 600 mg tablet 600 mg PO TID #270 tabs 08/24/24 08/27/24 Rx amitriptyline 25 mg tablet 25 mg PO QHS #90 tabs 10/19/24 Rx APAP #1 ea 10/20/24 Rx cyclobenzaprine 10 mg tablet See Rx Instructions .Route 11/24/24 Rx .COMPLEX #90 tabs Laboratory Tests 12/26/24 12/26/24 08:34 10:09 WBC 26.9 H K/mm3 (4.5-10.0) RBC 4.74 M/mm3 (4.2-5.4) Hgb 14.6 g/dL (12.0-15.0) Hct 42.4 % (37.0-47.0) MCV 89.5 fl (80-100) MCH 30.8 pg (26-34) MCHC 34.4 g/dl (32-36) RDW 12.6 % (11.5-14.5) Plt Count 365 k/mm3 (150-375) MPV 9.6 fl (7.4-10.4) Immature Gran % (Auto) 0.7 H % (0-0.5) Neut % (Auto) 84.1 H % (45.5-73.1) Lymph % (Auto) 8.1 L % (18.3-44.2) [place] % (Auto) 6.8 % (2.6-8.5) Eos % (Auto) 0.0 % (0-4.4) Baso % (Auto) 0.3 % (0.2-1.2) Lymph # (Auto) 2.19 K/mm3 (0.9-3.2) [place] # (Auto) 1.8 H K/mm3 (0.1-0.6) Eos # (Auto) 0.0 K/mm3 (0-0.3) Baso # (Auto) 0.1 K/mm3 (0.0-0.1) Abs Immat Gran (auto) 0.18 H K/mm3 (0.00-0.031) Absolute Neuts (auto) 22.7 H K/mm3 (1.3-6.7) Absolute Nucleated RBC 0.000 K/mm3 (0.0-0.012) Nucleated RBC % 0.0 % (0.0-0.2) Sodium 133 L mmol/L (137-145) Potassium 4.1 mmol/L (3.4-5.0) Chloride 97 L mmol/L (98-107) Carbon Dioxide 22 mmol/L (22-30) Anion Gap 14 H mmol/L (4-12) BUN 16 mg/dL (7-17) Creatinine 0.60 L mg/dL (0.7-1.0) Estim Creat Clear Calc 118 ml/min Estimated GFR > 60 (59 - ) Glucose 160 H mg/dL (65-110) Calcium 9.2 mg/dL (8.4-10.2) Total Bilirubin 1.8 H mg/dL (0.2-1.3) AST 49 H U/L (14-36) ALT 94 H U/L (6-35) Alkaline Phosphatase 58 U/L (38-126) Total Protein 8.0 g/dL (6.3-8.2) Albumin 4.4 g/dL (3.5-5.1) Lipase 29 U/L (23-300) Urine Color Yellow (Yellow) Urine Appearance Clear (Clear) Urine pH 7.0 (5.0-9.0) Ur Specific [place] > 1.045 H (1.001-1.035) Urine Protein Negative mg/dL (Negative) Urine Glucose (UA) Negative mg/dL (Negative) Urine Ketones Negative mg/dL (Negative) Ur Blood (Man) Trace (Negative) Urine Nitrate Negative (Negative) Urine Bilirubin Negative (Negative) Urine Urobilinogen 0.2 mg/dL (<2.0) Leukocyte Esterase Rfl Negative ELLEN/UL (Negative) Urine RBC 0-2 /hpf (0-2) Urine WBC 0-5 /hpf (0-3) Ur Squamous Epith Cells None seen /hpf (Few) Urine Bacteria None seen /hpf Urine Casts 0-2 Patient hx anesthesia problems: none Family hx anesthesia problems: none Results Review: All pre-operative results and documents have been reviewed as part of the pre-operative evaluation. [facility] Past Medical History Medical History Hepatic steatosis (~2016) Vitamin D deficiency Chronic low back pain with left-sided sciatica Chronic insomnia Prediabetes Fibromyalgia Surgical History Surgical History History of (~2009) History of cholecystectomy (~2011) Family History Family History Father Hypertension Family history of diabetes mellitus in first degree relative Grandparent Family history of arthritis Malignant neoplasm of prostate Family history of malignant neoplasm of bone Family history of malignant neoplasm of breast Mother Family history of malignant neoplasm Patient's mother is Other Diabetes mellitus Family history of elevated blood lipids Social History Social History Smoking status: Never smoker Alcohol intake: current Substance use: never Substance use type: does not use Lack of Transportation: No Lack of Food: Never True Current Housing: I Have Housing Concerned About Future Housing: No Difficulty Paying Gas/Electric Bills: No Difficulty Paying for Meds: No Currently Unemployed: No Education: Master's Degree or Higher Difficulty w/ Childcare or Family Care: No Living arrangements: with family Occupation/Education: occupation Gender identity (if verbalized by the patient): Female Agree to blood products: Yes Anes - Eval Final PreProcedure Day of Procedure 12/26/24 12:16 Patient weight: obese Heart: regular rate and rhythm Lungs: clear to auscultation Airway: Mallampati scale class II and special considerations (Missing several upper and lower teeth. ) Neurological: alert and oriented Last oral intake: >/= 8 hours ASA classification: III Emergent: yes Anesthetic plan: proceed Anesthesia type and monitoring: general ETT and standard monitoring Results Review: All pre-operative results and documents have been reviewed as part of the pre-operative evaluation. KENRICK, but not yet on her rx CPAP, hx of ETOH use but pt reports none currently and difficult to quantitate the last time she drank ETOH. Fibromyalgia, fatty liver disease, nonsmoker, now w acute appendicitis. Informed Consent: The patient's anesthetic plan and its attendant risks and benefits were discussed with the patient/family/POA. Questions were solicited and answers provided to the satisfaction of the patient/family/POA.
--- NOTE | 2024-12-26 12:17 | WPDHPUPDATE1 ---
History and Physical Update Update Date/Time: 12/26/24 12:17 History and Physical has been reviewed, including an updated exam of the patient. There are NO changes in the patient's condition. Risks, benefits, and alternatives have been discussed and questions answered. Patient agrees to proceed with procedure.
[2024-12-26] MEDS: BUPIVACAINE/EPINEPHRINE 0.5% 50 ML VIAL 20 ML INFILTRATE (12:55)
[2024-12-26] MEDS: LACTATED RINGERS 1,000 ML 30 ML IV CONT ×2 (13:42)
--- NOTE | 2024-12-26 14:24 | W.PM.PROC2 ---
Procedure Note - Detailed Date of Procedure 12/26/24 Pre-op Diagnosis Acute appendicitis Post-op Diagnosis Same Procedure Performed Laparoscopic appendectomy Surgeon Phill Powell MD [facility] Anesthesia General and Local Indications Patient came to the emergency room after experiencing severe lower abdominal pain just right of the pubis. She had no nausea and vomiting but the pain persisted and she went to the emergency room. She was [place] [id number] [place] scan of the abdomen pelvis showed acute appendicitis. Findings Acute non perforated appendicitis Description of Procedure Patient was taken to the operating room and induced into general anesthesia. The abdomen is prepped and draped. Trocars were placed in usual fashion using Pathbrite optical trocars and a 5 mm camera. Patient was placed in Trendelenburg in the right-side was elevated. I was able to turn an inflammatory mass in the area the cecum and see the appendix. I gently dissected it from surrounding structures as it was stuck with inflammatory adhesions. Eventually I was able to grasp the appendix and elevated it. This facilitated additional dissection and eventually the entire length the appendix was mobilized. I then exposed the mesoappendix near the base of the appendix. Careful dissection was carried out and the appendiceal artery was thoroughly cauterized and divided. The mesoappendix was divided completely and the base the appendix was skeletonized. A Vicryl endoloop was used to ligate the appendix at its base. The appendix was amputated just above the ligature. The mucosa of the appendiceal stump was cauterized. The appendix was placed immediately in an Endo-Catch bag and retrieved through the 10 11 left lower quadrant trocar site. The trocar was replaced and then we reviewed the areas of dissection. Suction as well as repeated irrigation and suction were carried out. All residual blood and any debris were removed. All looked quite good. I then used a Frantz cone and closed the fascia at the left lower quadrant trocar site with 0 Vicryl suture. All skin wounds were closed with subcuticular 4-0 Monocryl skin suture. Wounds were dressed with Exofin surgical adhesive. Patient was awakened and taken to recovery in good condition. Sponge and needle counts were correct x2. Estimated Blood Loss -5 Drains No Packing No Pathology Yes (Appendix) Complications None Condition Stable Disposition PACU [facility] Billing Surgery - Charge Forward: Surgery Billing (Laparoscopic appendectomy)
--- NOTE | 2024-12-26 14:31 | PM.DS ---
DS: Admitting Diagnosis Discharge Date 12/26/24 Admitting Diagnosis Acute appendicitis DS: Discharge Diagnosis Discharge Diagnosis (1) Acute appendicitis with localized peritonitis without perforation: Qualifiers: Appendicitis gangrene presence: without gangrene Appendicitis abscess presence: without abscess Qualified Code(s): K35.30 - Acute appendicitis with localized peritonitis, without perforation or gangrene Code(s): K35.30 - Acute appendicitis with localized peritonitis, without perforation or gangrene Status: Acute DS: Summary Hospital Course Hospital Course: Patient came to the emergency room with severe right lower abdominal pain[place] [address] scan showed acute appendicitis. She was taken to surgery by Dr. Powell that same day and laparoscopic appendectomy was performed. There was no evidence of perforation or abscess. Patient did well was able to be discharged the same day. Status at Discharge Functional status at discharge: independent ambulation Overall status at discharge: patient is progressing back to baseline Time Spent with Patient Time attestation: Total time spent providing and/or coordinating discharge services: Time spent: Less than 30 minutes DS: Data Data Completed and Pending Pending studies at discharge: Pending at discharge 12/26/24 12:51 Surgical [PTH] Routine Labs on day of discharge: Labs from last 24 hours 12/26/24 12/26/24 10:09 08:34 WBC 26.9 H RBC 4.74 Hgb 14.6 Hct 42.4 MCV 89.5 MCH 30.8 MCHC 34.4 RDW 12.6 Plt Count 365 MPV 9.6 Immature Gran % (Auto) 0.7 H Neut % (Auto) 84.1 H Lymph % (Auto) 8.1 L [place] % (Auto) 6.8 Eos % (Auto) 0.0 Baso % (Auto) 0.3 Lymph # (Auto) 2.19 [place] # (Auto) 1.8 H Eos # (Auto) 0.0 Baso # (Auto) 0.1 Abs Immat Gran (auto) 0.18 H Absolute Neuts (auto) 22.7 H Absolute Nucleated RBC 0.000 Nucleated RBC % 0.0 Sodium 133 L Potassium 4.1 Chloride 97 L Carbon Dioxide 22 Anion Gap 14 H BUN 16 Creatinine 0.60 L Estim Creat Clear Calc 118 Estimated GFR > 60 Glucose 160 H Calcium 9.2 Total Bilirubin 1.8 H AST 49 H ALT 94 H Alkaline Phosphatase 58 Total Protein 8.0 Albumin 4.4 Lipase 29 Urine Color Yellow Urine Appearance Clear Urine pH 7.0 Ur Specific [place] > 1.045 H Urine Protein Negative Urine Glucose (UA) Negative Urine Ketones Negative Ur Blood (Man) Trace Urine Nitrate Negative Urine Bilirubin Negative Urine Urobilinogen 0.2 Leukocyte Esterase Rfl Negative Urine RBC 0-2 Urine WBC 0-5 Ur Squamous Epith Cells None seen Urine Bacteria None seen Urine Casts 0-2 Discharge Plan Discharge Patient Disposition: Home, Self-Care Discharge Instructions: 1. May shower the day after surgery over incisions. 2. Call office for: -Wound increasingly painful or bleeding -Vomiting -Fever of greater than 101 degrees 3. Expect some blood on dressing and old blood on skin. 4. If no bowel movement for three days, take 1 oz. (30 ml) Milk of Magnesia, if no results, take Fleets enema. 5. No heavy lifting > 15-20 pounds for 2 weeks. 6. No driving for 3 days or while taking narcotic pain medications. 7. Up walking 10-30 minutes three times per day. 8. Resume previous home medications. 9. Follow-up 10-14 days in office for wound check or as previously scheduled. 10. Oral pain medications prescription to be sent home with patient. 11. NUTRITION: Start out by drinking fluids and increase your diet as tolerated. If you experience nausea, try dry toast, crackers, and 7-UP. If nausea or vomiting persists, contact your surgeon?s office. Patient Instructions: Antibiotic Form Patient Language: Slovak Stand Alone Forms: General Discharge Instructions Follow-up/Referrals: Phill Powell MD [Physician] - 2 Weeks (Call Dr. Lopez office to make appointment for follow-up) Omar Tan MD [Primary Care Provider] - Discharge Medications: New oxycodone-acetaminophen [Percocet] 5-325 mg tablet 0.5 - 1 tablet PO Q4H PRN (Reason: pain) Qty: 10 0RF ketorolac 10 mg tablet 10 mg PO Q6H 4 Days Qty: 16 0RF Continued melatonin 10 mg capsule 10 mg PO DAILY PRN acetaminophen [Tylenol Extra Strength] 500 mg tablet 500 mg PO Q6H PRN cholecalciferol (vitamin D3) 125 mcg (5,000 unit) tablet 125 mcg PO DAILY duloxetine [Cymbalta] 30 mg capsule,delayed release(DR/EC) 30 mg PO BID Qty: 180 1RF gabapentin 600 mg tablet 600 mg PO TID Qty: 270 1RF amitriptyline 25 mg tablet 25 mg PO QHS Qty: 90 0RF (DME) APAP See Rx Instructions .Route .MEDSUPPLY Qty: 1 0RF Rx Instructions: As directed Resmed AutoPAP 5-15 cm H2O, CPAP mask/filters/tubing and heated humidity. cyclobenzaprine 10 mg tablet See Rx Instructions .ROUTE .COMPLEX Qty: 90 1RF Dose Instruction: TAKE 1 TABLET BY MOUTH THREE TIMES DAILY NEEDED FOR MUSCLE SPASM Rx Instructions: TAKE 1 TABLET BY MOUTH THREE TIMES DAILY NEEDED FOR MUSCLE SPASM
== END 2024-12-26 15:50 | disposition home or self-care (01) ==
LOC: ANHED 09:15 → ANHSURGERY 11:13
PROVIDERS: Emergency Provider Emergency Medicine; PCP Family Medicine; Visit Provider Surgery
PROC: 0DTJ4ZZ Resection of Appendix, Percutaneous Endoscopic Approach (ICD-10-PCS; CPT 44970; principal; 2024-12-26 13:00)
DX: K35.32 Acute appendicitis with perforation, localized peritonitis, and gangrene, without abscess (principal); K76.0 Fatty (change of) liver, not elsewhere classified; F51.04 Psychophysiologic insomnia; M79.7 Fibromyalgia; E66.9 Obesity, unspecified; Z68.37 Body mass index [BMI] 37.0-37.9, adult
CPT/HCPCS: 44970; 36415; 74177; 80053; 81001; 83690; 85025; 87040; 88304; 96361; 96365; 96375; 99285; J0330; J2003; J2250; J2270; J2371; J2405; J2543; J2704; J2765; J3010; J7030; J7120; Q9967

== ENCOUNTER 2025-03-20 08:34 | Emergency (ER) | payer OTHER, SELFPAY ==
[2025-03-20 08:43] VITALS: BP 101/80; PULSE 102; RESP 16; TEMP 37.3; O2SAT 95
--- NOTE | 2025-03-20 08:49 | ED.URI ---
HPI - URI/Sore Throat General Chief Complaint: Upper Respiratory Infection Stated Complaint: Cold Like Time Seen by Provider: 03/20/25 08:49 Source: patient Mode of arrival: ambulatory Limitations: no limitations History of Present Illness HPI Narrative: 54-year-old female presents with complaint nasal congestion, sinus pressure, postnasal drainage, bilateral ear pressure for 4-5 days. Afebrile. Taking Zyrtec and Flonase daily. Using Robitussin at night to treat cough. Requesting codeine cough medication due to coughing fits and unable to sleep. Denies chest pain, shortness of breath. All systems reviewed and negative except as noted above. Related Data Home Medications ?Medication ?Instructions ?Recorded ?Confirmed ?Last Taken ?Type cholecalciferol (vitamin D3) 125 125 mcg PO DAILY 07/09/23 01/23/25 Unknown History mcg (5,000 unit) tablet Allergies Allergy/AdvReac Type Severity Reaction Status Date / Time No Known Allergies Allergy Verified 03/20/25 08:42 Review of Systems Review of Systems: CONSTITUTIONAL: Denies fever, chills, or sweats. EYES: Denies visual changes, redness, or discharge. ENT: Reports rhinorrhea, congestion, sinus pressure. Denies sore throat. Reports bilateral ear pressure. CARDIOVASCULAR: Denies chest pain, palpitations, or edema. RESPIRATORY: Reports cough. Denies dyspnea. GASTROINTESTINAL: Denies abdominal pain, nausea, vomiting, or diarrhea. GENITOURINARY: Denies dysuria or hematuria. SKIN: Denies rash or itching. MUSCULOSKELETAL: Denies back pain, joint pain, or myalgia. NEUROLOGIC: Denies headache, numbness, or weakness. PSYCHIATRIC: Denies anxiety or depression. All other systems reviewed are negative, except as documented in HPI. [facility] Past Medical History Medical History Hepatic steatosis (~2016) Vitamin D deficiency Chronic low back pain with left-sided sciatica Chronic insomnia Prediabetes Fibromyalgia Surgical History Surgical History S/P laparoscopic appendectomy 12/26/[address] Powell History of (~2009) History of cholecystectomy (~2011) Family History Family History Father Hypertension Family history of diabetes mellitus in first degree relative Grandparent Family history of arthritis Malignant neoplasm of prostate Family history of malignant neoplasm of bone Family history of malignant neoplasm of breast Mother Family history of malignant neoplasm Patient's mother is Other Diabetes mellitus Family history of elevated blood lipids Social History Social History Smoking status: Never smoker Alcohol intake: current Substance use: never Substance use type: does not use Do You Feel Safe in your Home?: Yes Lack of Transportation: No Lack of Food: Never True Current Housing: I Have Housing Concerned About Future Housing: No Difficulty Paying Gas/Electric Bills: No Difficulty Paying for Meds: No Currently Unemployed: YES Education: Master's Degree or Higher Difficulty w/ Childcare or Family Care: No Living arrangements: with family Occupation/Education: occupation Gender identity (if verbalized by the patient): Female Agree to blood products: Yes Comments At time of signature, agree with nursing past medical, surgical, social and family history. There is no relevant family history pertinent to the presenting complaint. Exam Narrative: GENERAL: This is a well-nourished, well-developed patient, in no apparent distress. HEAD: normocephalic, atraumatic. EYES: PERRL. Sclera clear/white. Vision is grossly intact. EARS: External ears normal, auditory canals clear and without drainage, fluid, erythema, dull light reflex bilateral TMs without perforation. Hearing grossly intact. NOSE: External nose normal with clear nasal drainage, mild congestion, erythema and swelling to bilateral nares. maxillary sinus tenderness on palpation bilaterally THROAT: Mucous membranes moist, mild erythema postnasal drainage. No swelling or exudates NECK: Neck supple, non-tender without lymphadenopathy, masses or thyromegaly. CARDIOVASCULAR: Regular rate and rhythm without murmurs, gallops, or rubs. RESPIRATORY: Clear to auscultation. Breath sounds equal bilaterally. No wheezes, rales, or rhonchi. SKIN: warm, Dry, intact with no suspicious lesions or rash, good texture and turgor. NEURO: awake, alert, and oriented to person, place and time. There were no obvious focal neurologic abnormalities. EXTREMITIES: No joint tenderness, effusion, or edema noted. Course Course Level of Care: Express Care Visit Vital Signs Vital signs: Vital Signs Temperature 37.3 C 03/20/25 08:43 Pulse Rate 102 H 03/20/25 08:43 Respiratory Rate 16 03/20/25 08:43 Blood Pressure 101/80 03/20/25 08:43 Pulse Oximetry 95 03/20/25 08:43 Temperature 37.3 C 03/20/25 08:43 Pulse Rate 102 H 03/20/25 08:43 Respiratory Rate 16 03/20/25 08:43 Blood Pressure 101/80 03/20/25 08:43 Pulse Oximetry 95 03/20/25 08:43 Reviewed MDM - URI/Sore Throat MDM Narrative Medical decision making narrative: Will treat serous otitis media with antibiotic due to exam findings. Patient agrees and. Patient is well-appearing, nontoxic. Discharge Plan Discharge Clinical Impression: Acute sinusitis, Acute serous otitis media of both ears Patient Disposition: Home Condition: Stable Instructions: Antibiotic Form, Fluid In The Ear (Serous Otitis Media) (ED) Additional Instructions: Take medications as prescribed. Do not drive while taking prescription codeine cough medication. This medication may cause drowsiness. Continue using daily antihistamine and Flonase nasal spray. Drink at least 64 oz of water a day. See your doctor if symptoms are not improving. Patient Language: Albanian Prescriptions: New benzonatate 200 mg capsule 200 mg PO TID PRN (Reason: cough) Qty: 20 0RF amoxicillin 875 mg tablet 875 mg PO Q12H 10 Days Qty: 20 0RF codeine-guaifenesin [Virtussin AC] 10-100 mg/5 mL liquid 5 ml PO Q6H PRN (Reason: cough) Qty: 120 0RF methylprednisolone [Medrol ([place])] 4 mg tablets,dose pack See Rx Instructions PO .COMPLEX Qty: 21 0RF Rx Instructions: orally per package directions No Action cholecalciferol (vitamin D3) 125 mcg (5,000 unit) tablet 125 mcg PO DAILY (DME) APAP See Rx Instructions .Route .MEDSUPPLY Qty: 1 0RF Rx Instructions: As directed Resmed AutoPAP 5-15 cm H2O, CPAP mask/filters/tubing and heated humidity. duloxetine 30 mg capsule,delayed release(DR/EC) See Rx Instructions .ROUTE .COMPLEX Qty: 180 1RF Dose Instruction: TAKE 1 CAPSULE BY MOUTH TWICE DAILY Rx Instructions: TAKE 1 CAPSULE BY MOUTH TWICE DAILY cyclobenzaprine 10 mg tablet See Rx Instructions .ROUTE .COMPLEX Qty: 90 1RF Dose Instruction: TAKE 1 TABLET BY MOUTH THREE TIMES DAILY NEEDED FOR MUSCLE SPASM Rx Instructions: TAKE 1 TABLET BY MOUTH THREE TIMES DAILY NEEDED FOR MUSCLE SPASM amitriptyline 25 mg tablet See Rx Instructions .ROUTE .COMPLEX Qty: 90 1RF Dose Instruction: TAKE 1 TABLET BY MOUTH EVERY DAY AT BEDTIME Rx Instructions: TAKE 1 TABLET BY MOUTH EVERY DAY AT BEDTIME gabapentin 600 mg tablet 600 mg PO TID Qty: 270 1RF Follow-up/Referrals: Omar Tan MD [Primary Care Provider] - Time of Disposition: 08:58
== END 2025-03-20 09:01 | disposition home or self-care (01) ==
PROVIDERS: Emergency Provider Nurse Practitioner Family; PCP Family Medicine
DX: J01.90 Acute sinusitis, unspecified (principal); H65.03 Acute serous otitis media, bilateral; R73.03 Prediabetes; M79.7 Fibromyalgia; E55.9 Vitamin D deficiency, unspecified; K76.0 Fatty (change of) liver, not elsewhere classified
CPT/HCPCS: 99213; G0463

== ENCOUNTER 2025-05-26 14:42 | Outpatient (RCR) | payer OTHER, SELFPAY ==
[2025-05-26 14:53] VITALS: BMI 40.1
--- NOTE | 2025-06-24 13:48 | PCDIET ---
MNT consult completed in April. Follow up appt scheduled 06/24/25 not kept.
== END 2025-08-10 06:26 | disposition home or self-care (01) ==
LOC: ANHDMC 14:42
PROVIDERS: PCP Family Medicine; Visit Provider Nurse Practitioner
DX: K76.0 Fatty (change of) liver, not elsewhere classified (principal); R73.03 Prediabetes; Z71.3 Dietary counseling and surveillance
CPT/HCPCS: 97802

== ENCOUNTER 2025-06-23 09:00 | Outpatient (CLI) | payer OTHER, SELFPAY ==
--- OUTSIDE RECORDS SUMMARY | 2025-06-23 09:10 | XMS_ITS | Encounter Summary ---
Author Organization [facility] Healthcare Address [address] [place] [address] Care Team Providers Care Cooler Conveyor Loader Name Role Phone Tito Soria MD Primary Care Provider [phone] Encounter Details Date Type Department Care Team (Late st Contact Info) Description 02/14/[address] [address] Celia King, RT Social History Tobacco Use Types Packs/Day Years Used Date Smoking Tobacco: Never Smokeless Tobacco: Never Alcohol Use Standard Drinks/Week Comments Yes 0 (1 standard drink = 0.6 oz pur e alcohol) Comments No Sex and Gender Information Value Date Recorded Sex Assigned at Not on file Legal Sex Female 1:49 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
--- OUTSIDE RECORDS SUMMARY | 2025-06-23 09:10 | XMS_ITS | Clinical Summary ---
Author Organization [facility] Address [address] [place] [address] Care Team Providers Care Refrigeration Insulator Name Role Phone Tito Soria MD Primary Care Provider Allergies No known active allergies Medications gabapentin (NEURONTIN) 300 MG Capsule TK 1 C PO TID 1 11/27/2016 Active Cholecalciferol (VITAMIN D) 2000 UNIT Tablet Take by mouth. Active Multiple Vitamins-Mineral s (MULTIVITAMIN PO) Take by mouth. Active MILK THISTLE PO Take by mouth. Active [place]-3 Fatty Acids (FISH OIL PO) Take by mouth. Active FIBER COMPLETE PO Take by mouth. Active Family History Medical History Relation Name Comments Other-comment Father prediabetic an d high triglycerides Diabetes Mother Ovarian Cancer Mother Relation Name Status Comments Father Alive Mother Social History Tobacco Use Types Packs/Day Years Used Date Smoking Tobacco: Never Tobacco Cessation:Counseling Given: Yes Alcohol Use Standard Drinks/Week Comments No 0 (1 standard drink = 0.6 oz pur e alcohol) etoh about 1-2 drinks a month Comments No Sex and Gender Information Value Date Recorded Sex Assigned at Not on file Legal Sex Female 2:46 PM LVN Gender Identity Not on file Sexual Orientation Not on file 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 Not on file Not on file Not on f ile Last Filed Vital Signs Vital Sign Reading Time Taken Comments Blood Pressure 118/74 01/10/2017 8:52 AM CDT Pulse 88 01/10/2017 8:52 AM CDT Temperature 36.6 C (97.9 F) 01/10/2017 8:52 AM CDT Respiratory Rate 18 01/10/2017 8:52 AM CDT Oxygen Saturation 97% 01/10/2017 8:52 AM CDT Inhaled Oxygen Concentration - - Weight 99.8 kg (220 lb) 01/10/2017 8:52 AM CDT Height 167.6 cm (5' 6) 01/10/2017 8:52 AM CDT Body Mass Index 35.51 01/10/2017 8:52 AM CDT Plan of Treatment Health Maintenance Due Date Last Done Comments TdaP Immunization 1972 Hepatitis B Immunization (1 of 3 - 19+ 3-dose series) 1991 Pap Smear 1993 Cervical Cancer Screening (CCS) 2002 HPV/Cotest 2002 Cologuard 2017 Colonoscopy 2017 Colorectal Cancer Screening 2017 Immunochemical Fecal Occult Blood 2017 Pneumococcal Immunization (5 0+ years) (1 of 1 - PCV) 2022 Zoster Immunization (1 of 2) 2022 SARS-COV-2 Immunization (4 - season) 2024 10/25/2021, 02/05/2021, 01/10/2021 Influenza Immunization (#1) 06/28/202506/28, 08/06/2019, 08/11/2018 Respiratory Syncytial Virus (RSV) Immunization (Adult) (1 - 1-dose 75+ series) 2047 Hepatitis C Virus (HCV) Screening Completed 11/23/2016 Human Papillomavirus (HPV) Immunization Aged Out No longer eligible b ased on patient's age to complete this topic Meningococcal Immunization (ACWY) Aged Out No longer eligible b ased on patient's age to complete this topic Rotavirus Immunization Aged Out No lo nger eligible based on patient's age to complete this topic Procedures Procedure Name Priority Date/Time Associated Diagnosis Comments HEPATITIS PANEL ACUTE (AHP) Routine 11/23/2016 from Last 3 Months or Most Recently Relevant to Health Maintenance Results * HEPATITIS PANEL ACUTE (AHP) (11/23/2016) Blood specimen (specimen) us Tito Soria MD HEMATOLOGY ORDERABLES Final Result from Last 3 Months or Most Recently Relevant to Health Maintenance Insurance [employer] on file Care Teams Refrigeration Insulator Relationship Specialty Start Date End Date Tito Soria MD [address] [place] [address] PCP - General Family Medicine 11/27/16
--- OUTSIDE RECORDS SUMMARY | 2025-06-23 09:10 | XMS_ITS | Clinical Summary ---
Author Organization [facility] Address [address] [place] [address] Care Team Providers Care Race Relations Professor Name Role Phone Pio MANCIA MD, Sanjay Live Primary Care Provider [phone] Source Comments [facility],non-owned Affiliates and Associated Physician Practices is amultiple site organization consisting of ambulatory clinics and hospital sitesin [place], [place], [place] and [place]. This disclosure is being madepursuant to the Care Everywhere program and may not contain all information available regarding this patient. Last updated 18.[facility] Allergies No known active allergies Medications * Be aware that medications may not be up to date on this document. Alwaysverify current medications with the patient. benzonatate (TESSALON) 200 MG capsule Take 1 capsule by mouth 3 times daily as needed for Cough 30 capsule 02/22/2019 Active gabapentin (NEURONTIN) 300 MG capsule TK 1 C PO TID 11/27/2016 Active Active Problems Problem Noted Date Diagnosed Date Fibromyalgia 02/22/2019 Immunizations Immunization Administration Dates Next Due INFLUENZA VACCINE, QUADR. 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 Gender Identity Not on file Sexual Orientation Not on file Last Filed Vital Signs Vital Sign Reading Time Taken Comments Blood Pressure 118/68 02/22/2019 12:51 PM CDT Pulse 70 02/22/2019 12:51 PM CDT Temperature 36.7 C (98.1 F) 02/22/2019 12:51 PM CDT Respiratory Rate 20 02/22/2019 12:51 PM CDT Oxygen Saturation - - Inhaled Oxygen Concentration - - Weight 99.8 kg (220 lb) 02/22/2019 12:51 PM CDT Height - - Body Mass Index - - Plan of Treatment Health Maintenance Due Date Last Done Comments COLOGUARD (AGES 45-75) - COL ON CA SCREENING 1972 COLON MONITORING 1972 COLONOSCOPY - COLON CA SCREENING 1972 CT COLONOGRAPHY - COLON CA SCREENING 1972 Colorectal Cancer Screening 1972 FIT - COLON CA SCREENING 1972 FLEX SIG - COLON CA SCREENING 1972 LIPID TESTING 1972 MAMMOGRAM 1972 HIV SCREENING 1987 HEPATITIS C SCREENING 06/07/1990 DTAP/TDAP/TD VACCINES (1 - Tdap) 1991 HEPATITIS B VACCINE (1 of 3 - 19+ 3-dose series) 1991 PAP SMEAR 1993 PNEUMOCOCCAL VACCINE 50+ (1 of 1 - PCV) 2022 ZOSTER VACCINE (1 of 2) 2022 COVID-19 VACCINE (1 - 2023-2 5 season) 2024 DEPRESSION SCREENING 10/28/2024 INFLUENZA VACCINE (#1) 2025 08/06/2019 HIB VACCINE Aged Out No longer eligi ble based on patient's age to complete this topic HPV VACCINE Aged Out No longer eligi ble based on patient's age to complete this topic MENINGOCOCCAL (Group B) VACC INE SHARED DECISION-MAKING Aged Out No longer eligibl e based on patient's age to complete this topic MENINGOCOCCAL GROUPS A/C/Y/W VACCINE Aged Out No longer eligible b ased on patient's age to complete this topic Insurance [facility] SELF PAY NO INSURANCE Member Subscriber Plan / Payer (Ef fective for All Dates) Name:Nereyda Carver Member ID:Not on file Relation to Subscriber:Not on file Name:NEREYDA CARVER Subscriber ID:Not on file (Home) Address: [address] [place] [id number] Payer ID:Not on file Group ID:Not on file Type:Self Pay Address: [place], [place] Care Teams Race Relations Professor Relationship Specialty Start Date End Date Sanjay Suero III, MD [address] [place] [id number] PCP - General 08/21/09
--- OUTSIDE RECORDS SUMMARY | 2025-06-23 09:10 | XMS_ITS | Clinical Summary ---
Author Organization [facility] [place] [address] Address [address] [place] [id number] Care Team Providers Care Presser Machine Name Role Phone Tito Soria MD Primary Care Provider [phone] Allergies No known active allergies Medications fluticasone (FLONASE) 50 mcg/actuation nasal spray spray 2 spray by intranasal route every day in each nostril 1 Inhaler 3 3 Active gabapentin (NEURONTIN) 300 mg capsule Take 600 mg by mouth 2 (two) times a day 0 Active cholecalciferol (VITAMIN D-3) 2,000 unit tablet Take by mouth Active vit-iron fum-folic ac ( Vitamin) 27 mg iron- 0.8 mg tablet daily Active cetirizine (ZyrTEC) 10 mg tablet TK 1 T PO D 0 Active amitriptyline (ELAVIL) 25 mg tablet TK 1 T PO HS 0 Active [place] Fe 11/16, 28, 1 mg-20 mcg (21)/75 mg (7) per tablet TAKE 1 TABLET BY MOUTH DAILY 84 tablet 3 2 Active Active Problems Problem Noted Date Diagnosed Date Right periclitoral cyst 09/27/2021 Assessment & Plan (09/27/2021 6:52 PM MATERIALS MANAGER): Reviewed options 1) pericare with BID sitz bath and warm compress 2) I&D today Rx Keflex, pt elects to first try aggressive pericare, hoping to avoid procedure. Return visit in 1 week, if persistent would recommend I&D. She is agreeable to plan. Family history of breast/ovarian cancer in femal e 05/15/2021 Fibrositis 01/09/2013 Overview (01/30/2017): Fibromyalgia Steatosis of liver 01/09/2013 Overview (01/31/2017): Fatty liver Atopic rhinitis 01/09/2013 Overview (01/31/2017): Allergic rhinitis Irritable bowel syndrome 01/09/2013 Overview (01/31/2017): IBS (irritable bowel syndrome) Gestational diabetes mellitus (GDM) 01/09/2013 Overview (02/01/2017): Gestational diabetes Immunizations Immunization Administration Dates Next Due Influenza, Split 07/23/2011 Tdap 04/04/2011 Surgical History Surgery Date Site/Laterality Comments SECTION 10/28/2011 - 10/27/2012 section CHOLECYSTECTOMY 10/28/2008 - 10/27/2009 SECTION, LOW TRANSVERSE 10/28/2010 - 10/27/2011 : Medical History Medical History Date Comments Primary fibromyalgia syndrome Fi bromyalgia Gestational diabetes mellitus (GDM) Diabetes gestational Obesity Fibromyalgia Abnormal Pap smear of cervix 2005 col poscopy - normal Family History Medical History Relation Name Comments Pancreatic cancer Maternal Grandfather Breast cancer Maternal Grandmother Cancer , breast; Diabetes Maternal Grandmother Diabete s mellitus; Depression Mother Depression; Diabetes Mother Diabetes mellit us; Other Mother Cancer -possibl e colon; Cause of : Cancer -possible colon/ovarian or colon or peritoneal cancer; had had hysterectomy and BSO in past was advanced at diagnosis and primary unclear Ovarian cancer Mother Pancreatic cancer Paternal Grandfather Thyroid disease Sister Thyroid dise ase; Colon cancer Neg Hx Uterine cancer Neg Hx Relation Name Status Comments Maternal Grandfather Maternal Grandmother Mother at 62 with Ovarian CA Paternal Grandfather Sister Social History Tobacco Use Types Packs/Day Years Used Date Smoking Tobacco: Never Smokeless Tobacco: Never Alcohol Use Standard Drinks/Week Comments Yes 0 (1 standard drink = 0.6 oz pur e alcohol) Humiliation, Afraid, Rape, and Kick questionnair e Answer Date Recorded Within the last year, have y ou been afraid of your partner or ex-partner? No 05/15/2021 Within the last year, have y ou been humiliated or emotionally abused in other ways by your partner or ex-partner? No Within the last year, have y ou been kicked, hit, slapped, or otherwise physically hurt by your partner or ex-partner? No 05/15/2021 Within the last year, have y ou been raped or forced to have any kind of sexual activity by your partner or ex-partner? No 05/15/2021 Comments No Sex and Gender Information Value Date Recorded Sex Assigned at Not on file Legal Sex Female 1:49 AM MATERIALS MANAGER Gender Identity Not on file Sexual Orientation Not on file Obstetrics History Para Term AB IAB SAB Ectopic Multiple Livin g Live Births 1 Date Outcome GA Total Labor Labor/2nd/3rd Weight Sex Type Anes PTL Tanai A1 A5 Name Clin 2012 CS-Un spec Living Last Filed Vital Signs Vital Sign Reading Time Taken Comments Blood Pressure 110/90 09/27/2021 4:03 PM MATERIALS MANAGER Pulse 74 06/02/2014 1:58 PM CDT Temperature - - Respiratory Rate - - Oxygen Saturation - - Inhaled Oxygen Concentration - - Weight 105.1 kg (231 lb 11.2 oz) 09/27/2021 4:03 PM MATERIALS MANAGER Height 167.6 cm (5' 6) 09/27/2021 4:03 PM MATERIALS MANAGER Body Mass Index 37.4 09/27/2021 4:03 PM MATERIALS MANAGER Plan of Treatment Not on file Insurance [facility] [place] [id number] Care Teams Presser Machine Relationship Specialty Start Date End Date Tito Soria MD [address] [place] [address] PCP - General 10/28/17
[2025-06-23 14:18] LABS: Hematocrit 43.8 % (37.0-47.0); Hemoglobin 14.1 g/dL (12.0-15.0); Mean Corpuscular HGB Conc 32.2 g/dl (32-36); Mean Corpuscular Hemoglobin 30.9 pg (26-34); Mean Corpuscular Volume 96.1 fl (80-100); Platelet Count Result 338 k/mm3 (150-375); Red Blood Count 4.56 M/mm3 (4.2-5.4); White Blood Count 5.9 K/mm3 (4.5-10.0)
[2025-06-23 14:32] LABS: INR 1.0; Prothrombin Time 13.3 Seconds (11.1-14.7)
[2025-06-23 15:55] LABS: Alanine Aminotransferase 141 U/L (6-35); Albumin Level 4.5 g/dL (3.5-5.1); Alkaline Phosphatase 79 U/L (38-126); Anion Gap 8 mmol/L (4-12); Aspartate Amino Transferase 104 U/L (14-36); Bilirubin,Total 1.0 mg/dL (0.2-1.3); Blood Urea Nitrogen 21 mg/dL (7-17); Calcium 9.4 mg/dL (8.4-10.2); Carbon Dioxide 28 mmol/L (22-30); Chloride 103 mmol/L (98-107); Cholesterol 201 mg/dL (0-200); Estimated Glomerular Filt Rate > 60; Glucose 93 mg/dL (65-110); HDL Direct 57 mg/dL; Potassium 4.1 mmol/L (3.4-5.0); Sodium 139 mmol/L (137-145); Total Protein 8.3 g/dL (6.3-8.2); Triglycerides 73 mg/dL (<150)
[2025-06-23 16:15] LABS: Iron 112 ug/dL (37-170)
[2025-06-23 16:16] LABS: Immunoglobulin G 1407 mg/dL (700-1600)
[2025-06-23 16:26] LABS: Percent Iron Saturation 29 % (20-50)
[2025-06-23 16:47] LABS: Hepatitis B Surface Antigen Negative (Negative)
[2025-06-23 16:53] LABS: HAV RESULT Negative (Negative); Hepatitis B Core IgM Result Negative (Negative)
[2025-06-23 16:56] LABS: Ferritin 67.40 ng/mL (11.1-264)
[2025-06-23 19:17] LABS: Hemoglobin A1C 6.3 % (<5.7)
[2025-06-24 06:08] LABS: Hep A Ab, Total Negative (Negative)
[2025-06-24 07:09] LABS: Hep B Core Ab, Total Negative (Negative)
== END 2025-06-23 09:01 | disposition home or self-care (01) ==
LOC: ANHGOSHLAB 09:01
PROVIDERS: PCP Family Medicine; Visit Provider Nurse Practitioner
DX: K76.0 Fatty (change of) liver, not elsewhere classified (principal); R74.8 Abnormal levels of other serum enzymes; E66.9 Obesity, unspecified; R73.03 Prediabetes
CPT/HCPCS: 36415; 80053; 80061; 80074; 82103; 82390; 82728; 82784; 83036; 83540; 83550; 85027; 85610; 86015; 86376; 86381; 86704; 86708

== ENCOUNTER 2025-06-24 15:29 | Outpatient (CLI) | payer OTHER, SELFPAY ==
--- NOTE | ~2025-06-24 | XR_ITS ---
EXAM/ PROCEDURE: XR knee RT 3V - 06/24/2025 15:35 CDT HISTORY: 55 years old Female with Pain in right knee COMPARISON: None available TECHNIQUE: Three view(s) FINDINGS/ IMPRESSION: There are no fractures or dislocations.Joint space narrowing, subchondral sclerosis, subchondral cyst formation and osteophyte formation, compatible with mild to moderate osteoarthritis. Probable tibial exostosis. Reviewed, dictated and finalized at location N.
== END 2025-06-24 15:30 | disposition home or self-care (01) ==
LOC: GOSHIMG 15:30
PROVIDERS: PCP Family Medicine; Visit Provider Family Medicine
DX: M25.561 Pain in right knee (principal)
CPT/HCPCS: 73562

== ENCOUNTER 2025-10-01 09:07 | Outpatient (CLI) | payer OTHER, SELFPAY ==
--- NOTE | ~2025-10-01 | MR_ITS ---
EXAMINATION: MR lumbar spine wo con DATE: 10/01/2025 09:49 INDICATION: Lumbago with sciatica, left side. TECHNIQUE: Magnetic resonance imaging (MRI) of the lumbar spine was performed without intravenous contrast. Sequences included sagittal T2-weighted FSE, sagittal T2-weighted FS FSE, sagittal T1-weighted FSE, and axial T2-weighted FSE. COMPARISON: Lumbar spine radiographs 07/27/2024 FINDINGS: There is 3 degrees levocurvature of lumbar spine. There is 4 mm retrolisthesis of L5 on S1. There is mild chronic anterior wedging of T11 and T12 vertebral bodies. There are Schmorl's nodes at multiple levels. There is mildly decreased disc height at L1-L2 and L2-L3 and moderately decreased disc height at L4-L5 and L5-S1. The distal spinal cord signal intensity is normal. The conus medullaris is at T12-L1. The following disc levels are specifically discussed: L1-L2: The disc is bulging and has an annular fissure. There is moderate bilateral facet joint osteoarthritis. There is mild bilateral neural foraminal stenosis. There is mild central canal stenosis. L2-L3: The disc is bulging and has an annular fissure. There is moderate bilateral facet joint osteoarthritis. There is mild bilateral neural foraminal stenosis. There is mild central canal stenosis. L3-L4: The disc is bulging and has an annular fissure. There is severe right and moderate left facet joint osteoarthritis. There is mild right and moderate left neural foraminal stenosis. There is mild central canal stenosis. L4-L5: The disc is bulging and has an annular fissure. There is severe bilateral facet joint osteoarthritis. There is mild bilateral neural foraminal stenosis. There is mild central canal stenosis. L5-S1: The disc is bulging and has a superimposed right foraminal extrusion. There is severe bilateral facet joint osteoarthritis. There is moderate right and mild left neural foraminal stenosis. There is mild central canal stenosis. IMPRESSION: 1. Moderate lumbar spondylosis. Reviewed, dictated and finalized at location E. MECHANIC
== END 2025-10-01 09:08 | disposition home or self-care (01) ==
LOC: MICIMG 09:09
PROVIDERS: PCP Nurse Practitioner Family; Visit Provider Nurse Practitioner Family
DX: M47.816 Spondylosis without myelopathy or radiculopathy, lumbar region (principal); M54.42 Lumbago with sciatica, left side; G89.29 Other chronic pain
CPT/HCPCS: 72148